=== PATIENT | female | born 1985 | race Caucasian/White ===

== ENCOUNTER 2020-03-08 05:30 | Day surgery (SDC) | payer MEDICAID, SELFPAY ==
--- NOTE | 2020-03-01 11:26 | EKG12_ITS ---
Test Reason : PREOP Blood Pressure : / mmHG Vent. Rate : 083 BPM Atrial Rate : 083 BPM P-R Int : 118 ms QRS Dur : 080 ms QT Int : 378 ms P-R-T Axes : 061 007 037 degrees QTc Int : 444 ms Normal sinus rhythm with sinus arrhythmia Normal ECG Confirmed by CELIA ARAYA, VIK ([id number]), photographic editor ZACK BARONE ([id number]) on 03/04/2020 1:35:09 PM Referred By: Benji Auguste Confirmed By:VERONA YANG MD
[2020-03-01 12:50] LABS: Hematocrit 37.5 % (37-47); Hemoglobin 12.9 g/dL (12.0-15.0); Mean Corp Hgb Conc 34.4 g/dL (32-36); Mean Corpuscular Hgb 40.8 pg (27.0-32.0); Mean Corpuscular Volume 118.7 fL (81-99); Mean Platelet Vol. 10.4 fl (6.2-12.0); Platelet Count 285 K/mm3 (150-450); RBC Distribution Width CV 13.2 % (11.6-14.6); RBC Distribution Width SD 57.9 fl (35.1-43.9); Red Blood Count 3.16 M/mm3 (4.2-5.4); White Blood Count 7.3 K/mm3 (4.4-11.0)
[2020-03-01 13:02] LABS: Prothrombin Time (Protime)PT. 12.9 SECONDS (11.7-14.9)
[2020-03-01 13:03] LABS: Partial Thromboplast Time 27.2 Seconds (24.1-36.2)
[2020-03-08] VITALS (7 sets, daily range): BP systolic 117–157; BP diastolic 63–102; PULSE 87–109; RESP 16–20; TEMP 36.4–38; O2SAT 95–100; BMI 20.5
[2020-03-08 06:08] LABS: Internal QC Validated? YES +Cl - CLEAR BKGD; Pregnancy, Urine Negative Negative
[2020-03-08] MEDS: Lactated Ringers 1,000 ML 100 ML IV ×2 (06:29→09:03)
--- NOTE | 2020-03-08 06:45 | HP.PCM_ITS ---
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 Is patient in pain?: Yes (abdomen) Allergies Sulfa (Sulfonamide Antibiotics) Allergy (Mild, Verified 02/21/20 08:37) Unknown Medications albuterol sulfate 90 mcg/actuation aerosol inhaler 1 inh INHALATION ONCE 02/21/20 [History Confirmed 02/21/20] folic acid 1 mg tablet 1 mg PO DAILY 02/21/20 [History Confirmed 02/21/20] ibuprofen 200 mg capsule 200 mg PO Q6H PRN 02/21/20 [History Confirmed 02/21/20] mecobalamin (vitamin B12) 1,000 mcg chewable tablet 1,000 mcg PO DAILY 02/21/20 [History Confirmed 02/21/20] norethindrone acetate 1.5 mg-ethinyl estradiol 30 mcg tablet 1 tab PO DAILY 02/21/20 [History Confirmed 02/21/20] pseudoephedrine HCl 30 mg tablet 30 mg PO ONCE 02/21/20 [History Confirmed 02/21/20] PFSH Medical History Hernia (Acute) Surgical History S/P section (Acute) S/P laparoscopic cholecystectomy (Acute) S/P laparotomy (Acute) Status post hernia repair (Acute) Family History Father Hypertension CAD (coronary artery disease) Thyroid disorder Mother CAD (coronary artery disease) Sister Thyroid disorder HPI HPI HPI: DANYA RAMOS, is a 34 F who presents to the office today for HPI HPI HPI: DANYA RAMOS, is a 34 F who presents to the office today for epigastric hernia. The patient reports that she has bulging and pain in the epigastric region. She has had a hernia repair at this location and she has had a port site for laparoscopic cholecystectomy at this location. She reports that coughing or straining makes the pain worse and makes it bulge more. She does not remember if she had mesh during her last cholecystectomy. ROS General General: Yes weight change and fatigue Cardio Cardiovascular: No murmur, pacemaker, heart disease, atrial fibrillation, high blood pressure, heart attack, heart stent, palpitations, shortness of breat with exertion or chest pain Psych Psychiatric: Yes anxiety; no depression Resp Respiratory: No shortness of breath, No sleep apnea, No cough, No COPD, No asthma, No emphysema, No wheezing Gastro Gastrointestinal: Yes abdominal pain, No nausea or vomiting, No diarrhea, No constipation, No blood in stool, No acid reflux, No hemorrhoids, No ulcers, No gallbladder problem, No black,tarry stools Rashad Hematologic: No blood thinners, Yes blood disorders, Yes anemia Exam Const General: cooperative Orientation: alert, oriented x3 Resp Effort & Inspection: normal respiratory effort Auscultation: clear to auscultation bilaterally Cardio Rate: regular rate Rhythm: regular rhythm Heart Sounds: no murmurs GI Inspection: non-distended Palpation: soft, hernia (Incisional epigastric hernia), nontender Assessment & Plan Problems 1. Recurrent ventral incisional hernia K43.2 Plan The patient has recurrent incisional hernia in the epigastric ventral region. The patient has bulging but I am unable to appreciate the size of the hernia. I will try to obtain her prior records. I discussed an open anterior approach. I discussed mesh placement as well as the risks of bleeding, infection, injury to underlying bowel. The patient understands the risks and all questions were answered. I will try to obtain her prior records. I will then call her and discuss surgery. Benji Auguste MD Pager: [facility] [address] [place] [address], [address] [place] [address] Office: I have re-examined the patient. There are no clinical changes since date of exam. I try to obtain records from her prior hospital but I was unable to find any record of her surgery. The patient would like hernia repair soon as possible. I discussed laparoscopic possible open ventral hernia repair with her. I will start laparoscopically and try to identify the hernia and remove any adhesions and then perform an anterior hernia repair with posterior placed mesh. I discussed the risks of the procedure including not limited to bleeding, infection, injury to underlying organs such as bowel or liver or stomach. Patient understands the risks and is willing to proceed. Benji Auguste MD Pager: [facility] [address] [place] [address] [address] [place] [address] Office:
[2020-03-08] MEDS: Cefazolin 2 GM in 0.9% Normal Saline 100 ML IV (07:25)
[2020-03-08] MEDS: Bupiv/Epi 0.25% 30 ML Vial (07:48)
--- NOTE | 2020-03-08 08:39 | PCM.OPRPT ---
Problem List (1) Recurrent ventral incisional hernia Status: Resolved Report of Operation Date of Procedure: 03/08/20 Pre-Operative Diagnosis: Recurrent incisional ventral hernia Post-Operative Diagnosis: Same Surgery/Procedure Performed:: Laparoscopic recurrent incisional ventral hernia repair with mesh Description of Procedure: Patient was brought back to the operating room and general anesthesia was induced. The abdomen was prepped and draped in usual sterile fashion. An incision was made inferior to the umbilicus and deepened to the fascia. The fascia was elevated and incised and the abdomen was entered. A port was placed into the abdomen and the abdomen was insufflated to 15 mmHg. The upper abdomen was inspected and there was an epigastric hernia. Next a 5 mm port was placed in the right abdomen as well as the left abdomen under direct visualization. Using harmonic the falciform ligament was taken down as well as the hernia sac. Next small poke incision was made over the hernia and using a Danny Estrada needle 0 PDS suture was used to close the hernia defect. Next around [address] mesh with echo deployment device was placed through the 12 mm port and positioned over the hernia. The balloon was insufflated and the hernia was tacked in 4 locations. The balloon was then removed and was intact. Next the mesh was tacked to the anterior abdominal wall circumferentially using secure strap tacks. The ports were then removed and the abdomen was allowed to desufflate. The peritoneum at the inferior port site was closed with interrupted 0 Vicryl suture. Next the anterior fascia was closed with a [id number] 0 Vicryl suture. The skin incisions were all anesthetized and closed with interrupted 4-0 Monocryl suture. Steri-Strips and bandages were then applied. Patient tolerated procedure well throughout magnesium condition. Grafts/Implants Used: [address] mesh - Admit VTE Documentation VTE Mechan Device Prophylaxis: SCD's
--- NOTE | 2020-03-08 08:46 | DCINST_ITS ---
Discharge Diet: Light diet - advance as tolerated Discharge Activity: Return to Normal Activity, May Not Drive - for 2-3 days or while taking narcotic pain meds., May Shower - with the bandage in place 1-2 days after surgery. Lifting Restrictions: 20 pounds for 4 weeks. Additional Activity Instructions:: Climbing stairs is fine, walking is encouraged. Sitting in bed may be uncomfortable. Sitting up using your lateral muscles (sitting up sideways) is usually more comfortable. Do not drive, work heavy equipment of sign legal documents for 24 hours. Pain medications may cause nausea, you should typically eat light foods as you take your pain medications. Pain medications may also cause constipation. If you have difficulty with this, discuss with your doctor. Call your doctor if your incision/area has: Continuous Slow Oozing, Sudden Increased Bleeding, Increased Pain/ Swelling, Increased Redness, Foul Smelling Discharge Call your doctor if you observe: Fever of 101 or Higher Suture Line Care: Avoid Pulling/Pushing, Avoid Pinching/Bending Change Dressing in (Days):: 3 - Leave steri-strips for 1 week. May protect with a guaze bandaid. Cleanse incision/area with: Keep Dressing Clean & Dry Allergies/Adverse Reactions: Allergies Sulfa (Sulfonamide Antibiotics) Allergy (Mild, Verified 03/08/20 05:51) Unknown Medications to take at Discharge albuterol sulfate 90 mcg/actuation aerosol inhaler 1 inh INHALATION PRN PRN 02/21/20 folic acid 1 mg tablet 1 mg PO DAILY 02/21/20 ibuprofen 200 mg capsule 200 mg PO Q6H PRN 02/21/20 mecobalamin (vitamin B12) 1,000 mcg chewable tablet 1,000 mcg PO DAILY 02/21/20 norethindrone acetate 1.5 mg-ethinyl estradiol 30 mcg tablet 1 tab PO DAILY 02/21/20 pseudoephedrine HCl 30 mg tablet 30 mg PO PRN PRN 02/21/20 Oxycodone HCl/Acetaminophen [Percocet 5-325 mg Tablet] 1 - 2 tab PO Q6H PRN PRN 7 Days #40 tablet 03/08/20 The following prescriptions were given: Oxycodone HCl/Acetaminophen [Percocet 5-325 mg Tablet] 1 - 2 tab PO Q6H PRN PRN 7 Days #40 tablet PRN Reason: Pain Score 4-10/10 Transmission Status: Sent to [facility] Test Results: Test results from this visit will be discussed in further detail at your follow- up appointment, if applicable. Please Follow Up With: Benji Auguste MD When: Please call to schedule 2 week follow up appointment. [phone]
[2020-03-08] MEDS: Acetaminophen 325 MG Tablet 650 MG PO (10:05)
[2020-03-08] MEDS: oxyCODONE 5 MG Tablet 10 MG PO (10:05)
== END 2020-03-08 11:07 | disposition home or self-care (01) ==
LOC: SDC 05:30 → AC 05:31
PROVIDERS: Anesthesiology; PCP Internal Medicine; Referring Provider Surgery; Visit Provider Surgery
PROC: 0WQF4ZZ Repair Abdominal Wall, Percutaneous Endoscopic Approach (ICD-10-PCS; CPT 49656; principal; 2020-03-08 07:10)
DX: K43.2 Incisional hernia without obstruction or gangrene (principal); D64.9 Anemia, unspecified; F17.200 Nicotine dependence, unspecified, uncomplicated; Z11.59 Encounter for screening for other viral diseases
CPT/HCPCS: 00840; 49656; 36415; 81025; 85027; 85610; 85730; 87635; 93005; C9803; J7120; J2405; U0003